=== PATIENT | female | born 1960 | race Caucasian/White ===

== ENCOUNTER 2025-02-01 09:30 | Outpatient (AMB) | payer BC, SELFPAY ==
--- NOTE | 2025-02-01 09:34 | A.OFFVIS_ITS ---
Intake Visit Reasons: 6M Accompanied by: Spouse Allergies No Known Allergies Allergy (Verified 02/01/25 09:39) Medication List - Last Reconciled 02/01/25 by Kimber Valderrama CNP alprazolam 1 mg PO TID PRN carbidopa-levodopa 25-100 mg (Sinemet) 1 tab PO TID 90 days duloxetine 60 mg PO DAILY rasagiline 1 mg PO DAILY 90 days tirzepatide (weight loss) (Zepbound) mg subcut HPI Comments Details: She was doing okay. She was taking carbidopa-levodopa 25-100mg three times a day. Tremors in hands were stable with medication, has not noticed any tremors in legs. No functional impairment. No difficulty eating, drinking, or swallowing. She has been dealing with heel spur since end of 12/2024 which was making going for walks difficult. She enjoyed exercising and felt more sluggish since she could not exercise as much. No falls. No difficulty turning in bed or getting up from chair. 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 Sleep was okay. Retired from [employer] at end of 2024 school year, worked as school psychologist for 30 years. May get some tremor in hands when next dose of carbidopa-levodopa due. Walking 3 miles 5-7 days/week when able. Some mornings she feels a bit dizzy with lightheadedness. Be scan was position. Mild, intermittent RUE hand resting tremor and some leg tremors. She would sometimes wake up in the morning and feel shaky, but it would only last for a few minutes. In 07/2022, she went on deep sea fishing trip after taking one Bonine for motion sickness. She caught 4 fish, but was apparently acting weird and had no memory of the event, and then slept for 4 hours. It appears she may have had transient global amnesia, but was not seen in ER. Since then, she has noted that she has tremor in her right hand that is at rest. She is left-handed and it does not impair function, but students notice it. Also has decreased smell for about 1 year, but also had COVID. She had 3 or 4 episodes of nightmares and yelling and screaming at night. [facility] Medical History (Updated 02/01/25 @ 09:39 by Kimber Valderrama CNP) Parkinson disease Surgical History (Updated 02/01/25 @ 09:39 by Kimber Valderrama CNP) Status post total bilateral knee replacement Review of Systems Const Denies chills, Denies daytime sleepiness, Reports difficulty sleeping, Denies fatigue, Denies fever(s), Denies frequent falls, Reports headache(s), Denies increased appetite, Denies poor appetite, Denies snoring, Denies weakness, Denies weight gain and Denies weight loss Eyes Denies loss of vision ENT Denies vertigo, Denies dizziness, Reports headache(s) and Denies neck pain Card Denies chest pain at rest, Denies chest pain with activity, Denies syncope, Denies leg edema, Denies palpitations, Denies dyspnea and Denies dyspnea on exertion Resp Denies cough, Denies dyspnea, Denies dyspnea on exertion and Denies snoring GI Denies abdominal pain, Denies constipation, Denies heartburn, Denies diarrhea and Denies nausea Denies urinary frequency, Denies urinary incontinence and Denies urinary urgency Musc Denies abnormal gait, Denies back pain, Denies myalgias, Denies arthralgias, Denies neck pain, Denies numbness and Denies tingling Neuro Denies abnormal gait, Denies vertigo, Denies dizziness, Denies syncope, Denies frequent falls, Reports headache(s), Denies lack of coordination, Denies loss of vision, Reports memory loss, Denies numbness, Denies Other visual disturbances, Denies restless legs, Denies seizure-like activity, Denies tingling, Denies paresthesias, Reports tremor(s) and Denies weakness Psych Reports anxiety, Denies depression, Denies auditory hallucinations, Reports memory loss and Denies visual hallucinations Endo Denies fatigue and Denies palpitations Physical Exam Const Other: General Appearance:? normal, in no acute distress. Heart:? S1, S2 normal, no murmurs. Lungs:? clear anteriorly and posteriorly. Musculoskeletal:? normal. Extremities:? no edema. Psych:? alert, oriented, cognitive function intact, cooperative with exam. Neuro Other: Abnormal Neurological Findings:?No resting pill rolling tremor of right hand and wrist noted on exam today. Slightly decreased facial expressions and reduced blinking frequency. Mental Status: alert and oriented X 3. Normal attention, orientation, memory, and affect. Cranial Nerves: Pupils are equal, round, and reactive to light. External ocular muscles are intact. Visual herring are full, no ptosis. Face is symmetrical, no facial weakness or droop. Facial sensations are normal. Tongue protrudes in midline. Palate elevates symmetrically. Shoulder shrugging is normal Motor Examination: Normal muscle tone, bulk and strength. No atrophy or fasciculations. No drift of the extended upper extremities. DTR 2+. Plantars are flexor. Sensory Exam: Normal light touch, temperature, pinprick, vibration, and joint- position sensations. Rhomberg sign is absent. Coordination: No ataxia. No titubation. Gait Exam: Within normal limits. Cerebellar Signs: [id number] is okay. Extrapyramidal System: As above. Speech: Normal. Results Reviewed Results Reviewed: BE scan positive with bilat dopamine depletion Assessment & Plan Assessment & Plan (1) Parkinson disease: Code(s): G20.A1 - Parkinson's disease without dyskinesia, without mention of fluctuations Category: Medical Qualifiers: Dyskinesia presence: unspecified whether dyskinesia Fluctuating manifestations: unspecified whether manifestations fluctuate Qualified Code(s): G20.A1 - Parkinson's disease without dyskinesia, without mention of fluctuations Plan: Continue carbidopa-levodopa 25-100mg 1 tablet three times a day. Continue rasagiline 1mg 1 tablet daily. Continue to stay physically active. Follow up in 6 months or sooner as needed. Coding Level of Care Code Est Pt Level 4 (89488) Diagnoses Parkinson's disease, unspecified whether dyskinesia present, unspecified whether manifestations fluctuate G20.A1 Dyskinesia presence: unspecified whether dyskinesia Fluctuating manifestations: unspecified whether manifestations fluctuate
--- OUTSIDE RECORDS SUMMARY | 2025-02-01 10:56 | XMS_ITS | Clinical Summary ---
Author Organization [employer] [facility] [place] [address] Care Team Providers Care Remote Encoding Operations Supervisor Name Role Phone Flaco Tucker MD Primary Care Provider [phone] Social History Tobacco Use Types Packs/Day Years Used Date Smoking Tobacco: Never Assessed Comments Unknown Sex and Gender Information Value Date Recorded Sex Assigned at Not on file Legal Sex Female 8:38 PM EST Gender Identity Not on file Sexual Orientation Not on file Last Filed Vital Signs Vital Sign Reading Time Taken Comments Blood Pressure 130/80 11/24/2023 8:41 AM EDT Sit ting L Arm Pulse - - Temperature - - Respiratory Rate - - Oxygen Saturation - - Inhaled Oxygen Concentration - - Weight 65.3 kg (144 lb) 11/24/2023 8:41 AM EDT Height 162.6 cm (5' 4 ) 11/24/2023 8:41 AM EDT Body Mass Index 24.72 11/24/2023 8:41 AM EDT Plan of Treatment Health Maintenance Due Date Last Done Comments Breast Cancer Screening 1960 Colorectal Cancer Screening: Colonoscopy 1960 DTaP,Tdap,and Td Vaccines (1 - Tdap) 01/18/1979 Cervical Cancer Screening: P ap Smear 01/18/1981 Pneumococcal Vaccine: 50+ Ye ars (1 of 1 - PCV) 01/18/2010 Zoster Vaccines (1 of 2) 01/18/2010 Hepatitis C Screening 03/13/2023 Osteoporosis Screening (Bone Density Screening) 03/13/2023 Social Influencers of Health Screening 03/13/2023 Depression Screening 02/17/2024 COVID-19 Vaccine (1 - 2024-2 6 season) 2024 Influenza Vaccine (#1) 2024 Falls Risk Assessment 01/18/2025 RSV Immunization Adult Patie nts (1 - 1-dose 75+ series) 01/18/2035 HIB Vaccines Aged Out No longer eligi ble based on patient's age to complete this topic HPV Vaccines Aged Out No longer eligi ble based on patient's age to complete this topic Hepatitis A Vaccines Aged Out No long er eligible based on patient's age to complete this topic Hepatitis B Vaccines Aged Out No long er eligible based on patient's age to complete this topic IPV Vaccines Aged Out No longer eligi ble based on patient's age to complete this topic MMR Vaccines Aged Out No longer eligi ble based on patient's age to complete this topic Meningococcal ACWY Vaccine Aged Out N o longer eligible based on patient's age to complete this topic Meningococcal B Vaccine Aged Out No l onger eligible based on patient's age to complete this topic RSV Immunization Patients Un dwain 20 months Aged Out No longer eligible b ased on patient's age to complete this topic Varicella Vaccines Aged Out No longer eligible based on patient's age to complete this topic Care Teams Remote Encoding Operations Supervisor Relationship Specialty Start Date End Date Flaco Tucker MD [address] [place] [address] PCP - General 10/15/23
--- OUTSIDE RECORDS SUMMARY | 2025-02-01 10:56 | XMS_ITS | Patient Health Record ---
Author Organization [facility] Address [address] [place] [address] Care Team Providers Care Big Data Admin Name Role Phone ALEXUS (RETIRED) MARSHA Gray Primary Care Provi dwain Unavailable Alethea Cervantes Unavailable [phone] Reason For Referral No Information Medications Medication SIG (Take, Route, Fr equency, Duration) Notes Start Date End Date Status Celecoxib 200 MG 1 capsule Orally Once a day Active FLUoxetine HCl 40 MG 1 capsule in the mo rning Orally Once a day Active Dilaudid 1 tablet as needed Orally Active Colace 100 MG 1 capsule as needed Orally Once a day Active Culturelle Orally Active Omeprazole 40 MG 1 capsule Orally Once a day Active Plan Of Treatment No Information Insurance Providers Payer Name Payer Address Payer Phone Subscriber Number Group Number Insured Name Patient Relationship to Insured Coverage Start Date Coverage End Date [employer] [address] [place] [address] [phone] [id number] JOHNATHAN FLORES Self - patient is the insured Medical (General) History Medical History History ICD Code Arthritis Essential (primary) hypertension I10 Emotional Problems Surgical History Surgery Date(Month/Year) Lap Band 2007 Left Knee Replacement 10/31/14 Colonoscopy 2010 Hospitalization History Reason Date(Month/Year) See Surgical Hx
== END 2025-02-01 09:58 | disposition home or self-care (01) ==
PROVIDERS: PCP Internal Medicine; Visit Provider Registered Nurse
DX: G20.A1 Parkinson's disease without dyskinesia, without mention of fluctuations (principal)
CPT/HCPCS: 99214